=== PATIENT | female | born 1955 | race Caucasian/White ===

== ENCOUNTER 2021-04-09 22:08 | Emergency (ER) | payer OTHER ==
[~2021-04-09] VITALS: Ht 162.6 cm; Wt 77.6 kg
[~2021-04-09 22:08] MED LIST: AMOXICILLIN 50500 MG PO; HORMONE REPLACEMENT; HYDROCODONE-AP1 EAC6 PO; NAPROSYN500 MG PO; NORCO 5-325 TA1 EACH PO; PAXIL10 MG; VITAMIN D1000 UNI1; magic mouth wash PO
[2021-04-09 22:28] LABS: HEMATOCRIT 45.8 % (37.0-47.0); HEMOGLOBIN 15.5 gm/dL (12.0-15.0); MCH 36.1 pg (26.0-34.0); MCHC 33.9 g/dL (28.0-37.0); MCV 106.4 fL (80.0-100.0); RBC 4.3 mil/uL (4.20-5.00); RDW-CV 14.1 % (10.5-14.5); WBC 14.2 thou/uL (4.0-11.0)
[2021-04-09 22:42] LABS: ALCOHOL 65 mg/dL (<10); SALICYLATE 4.8 mg/dL (2.8-20.0)
[2021-04-09 22:43] LABS: ACETAMINOPHEN < 2 ug/mL (10-30)
[2021-04-09 22:51] LABS: ALBUMIN 3.3 g/dL (3.4-5.0); CALCIUM 7.1 mg/dL (8.5-10.1); CREATININE 0.9 mg/dL (0.6-1.3); POTASSIUM 3.6 mmol/L (3.5-5.1); TOTAL BILIRUBIN 0.3 mg/dL (<0.1-1.0); TOTAL PROTEIN 7.5 g/dL (6.4-8.2)
[2021-04-09 23:17] LABS: URINE BILIRUBIN NEGATIVE (Negative); URINE BLOOD 1+ (Negative); URINE CLARITY CLEAR; URINE COLOR YELLOW; URINE GLUCOSE-RANDOM 1+ (Negative); URINE KETONES NEGATIVE (Negative); URINE LEUKOCYTES NEGATIVE (Negative); URINE NITRITE NEGATIVE (Negative); URINE PROTEIN NEGATIVE (Negative); URINE SPECIFIC GRAVITY 1.015 (1.005-1.030); URINE UROBILINOGEN 0.2 E.U./dl (0.2-1.0)
[2021-04-09 23:24] LABS: BACTERIA 1-9 Few /HPF (None Seen); CASTS None Seen /LPF (None Seen); CRYSTALS None Seen /LPF (None Seen); MUCUS 0-3 Light strn/LPF (None Seen); SQUAMOUS 0-3 Few /LPF (0-3); URINE WBC 0-5 Rare /HPF (0-5)
[2021-04-09 23:25] LABS: AMP/METHAMP Negative (Negative); BARBITURATES Negative (Negative); BENZODIAZEPINES Negative (Negative); COCAINE Negative (Negative); METHADONE Negative (Negative); OPIATES Negative (Negative); PCP Negative (Negative); THC Negative (Negative)
[2021-04-10 03:28] LABS: BE -3.3 mmol/L (-2 to +3); PCO2 44.5 mmHg (35.0-45.0); pH 7.327 (7.340-7.450)
[2021-04-10 03:32] LABS: PO2 220.1 mmHg (75.0-100.0)
[2021-04-10 07:01] VITALS: BP 155/80
--- NOTE | 2021-04-10 12:50 | EKG ---
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1955 Requested By: Sharla Gunderson Order Number: [id number] MD: Cristino Rowley Measurements Intervals [place] Rate: 109 P: 65 AL: 132 QRS: 67 QRSD: 94 T: 260 QT: 404 QTc: 545 Interpretive Statements Sinus tachycardia Premature atrial contractions LAE, consider biatrial enlargement Abnormal T, consider ischemia, diffuse leads Prolonged QT interval No previous ECG available for comparison Electronically Signed On 04-10-2021 12:50:28 CDT by Cristino Rowley [email or web address] <ELECTRONICALLY SIGNED> By: Cristino Rowley MD, FACC 04/10/21 1250 10 10 Cristino Rowley MD, [facility] /EPI
--- NOTE | 2021-04-11 14:36 | EKG ---
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1955 Requested By: Sharla Gunderson Order Number: [id number] Dhiraj MD: Blair Freed Measurements Intervals [place] Rate: 108 P: 66 OK: 129 QRS: 68 QRSD: 96 T: 252 QT: 379 QTc: 508 Interpretive Statements Sinus tachycardia Consider right atrial enlargement Repol abnrm suggests ischemia, diffuse leads Prolonged QT interval Compared to ECG 04/09/2021 22:11:38 Early repolarization now present Atrial premature complex(es) no longer present T-wave abnormality no longer present Possible ischemia still present Electronically Signed On 04-11-2021 14:36:08 CDT by Blair Freed [email or web address] <ELECTRONICALLY SIGNED> By: Blair Freed MD, [facility] 04/11/21 1436 12 12 Blair Freed MD, [facility] /EPI
== END 2021-04-10 07:02 | disposition short-term general hospital (02) ==
LOC: M.ERS 22:08
PROVIDERS: Personal Emergency Response Attendant
DX: I46.9 Cardiac arrest, cause unspecified (principal); Z20.822 Contact with and (suspected) exposure to COVID-19; T40.415A Adverse effect of fentanyl or fentanyl analogs, initial encounter; T46.5X5A Adverse effect of other antihypertensive drugs, initial encounter; I10 Essential (primary) hypertension; F17.210 Nicotine dependence, cigarettes, uncomplicated; Y92.89 Other specified places as the place of occurrence of the external cause